=== PATIENT | female | born 1985 | race Caucasian/White ===

== ENCOUNTER 2023-07-07 06:26 | Emergency (ER) | payer OTHER, SELFPAY ==
[2023-07-07 06:29] VITALS: BP 130/84
[2023-07-07 07:06] LABS: COVID-19 Antigen Negative (Negative)
--- NOTE | 2023-07-07 07:16 | ED.GENMED ---
History of Present Illness
General
Chief Complaint: Cold/Flu/URI Symptoms
Time Seen by Provider: 07/07/23 07:09
Travel History
Have you had any contact with someone who has COVID-19?: No
Do you have any symptoms of coronavirus? Fever > 100 degrees, chills, cough, shortness of breath, sore throat, loss of taste or smell, muscle aches, or headache?: Yes
Symptoms:: fever uri sx
History of Present Illness
History of Present Illness:
37-year-old female with no significant past medical history presents to the emergency department for evaluation of fever, nasal congestion, coughing, body aches, headache, and vomiting over the past 2 days. Vomiting has resolved as of this morning.
She is using [id number] Tylenol Cold and flu to control her symptoms. Denies any chest pain or or difficulty breathing. Non-smoker. No history of lung disease.
Review of Systems
Review of Systems
Allergies reviewed?: Yes
All Other Systems: ROS reviewed and negative except as documented in HPI and ROS
Phy Exam
Physical Exam
Physical Exam:
GEN: Well appearing, NAD, WDWN
HEENT: Oral mucosa moist, no scleral icterus tympanic membranes clear bilaterally
Cardiac: Minimally tachycardic, no murmurs
Lung: No respiratory distress, no tachypnea, lungs clear to auscultation bilaterally
MSK: No gross deformity or injuries
Skin: Good color, no pallor or jaundice, no rashes
Neuro: AO x3, moves all extremities freely
Psych: Calm, cooperative
Course
Orders/Labs/Results
Orders:
Orders
07/07/23 06:38
COVID-19 Antigen Urgent
Source: Nasal Swab
Influenza A+B Rapid Molecular Urgent
NANI Source: Nasal Swab
Specimen Description:
Vital Signs
Initial and Last Documented VS:
Initial Vital Signs
Temp Pulse Resp BP Pulse Ox
100.3 F 125 20 130/84 96
07/07/23 06:29 07/07/23 06:29 07/07/23 06:29 07/07/23 06:29 07/07/23 06:29
Last Documented Vital Signs
Temp Pulse Resp BP Pulse Ox
100.3 F 105 16 103/60 97
07/07/23 06:29 07/07/23 07:33 07/07/23 07:33 07/07/23 07:33 07/07/23 07:33
MDM/Problems Addressed
MDM/Problems Addressed:
Patient is clinically well-appearing. Mildly tachycardic which is likely in part due to fever. Discussed appropriate use of antipyretics and supportive care. No indication for antivirals particular given that she is outside the 48-hour treatment
window. Do not feel that labs or imaging will be of any benefit at this juncture given that I do not suspect secondary infection such as pneumonia.
*Critical Care Note
Total Time (30-74mins, 75-104mins- exclusive of procedures): Not Applicable
ED Attending Note
-
Portions of this chart may have been created with voice recognition software.� Occasional wrong word or��sound alike� substitutions may have occurred due to the inherent limitations of voice recognition software.
Discharge Plan
Departure
Patient Disposition: Home (Routine Discharge)
Date of Disposition: 07/07/23
Time of Disposition: 07:18
Patient with high blood pressure during this ER visit?: No
Discharge Problem:
Influenza A
Instructions: Flu, Adult (DC)
Activity Restrictions/Additional Instructions:
Use your Tylenol Cold & Flu product with 600mg ibuprofen (Advil/Motrin) every 6 hours for symptom control
Interventions
Interventions:
*Risk Screen - Suicide Last Done: 07/07/23 06:29
*General Assessment Last Done: 07/07/23 06:29
*Neglect/Abuse Screening Last Done: 07/07/23 06:29
ED- Fall Risk Assessment Last Done: 07/07/23 06:29
*ED COVID-19 Vaccine History Last Done: 07/07/23 06:29
*Nursing Disposition Last Done: 07/07/23 07:39
ED- Pulmonary Assessment Last Done: 07/07/23 07:14
Discharge Date and Time
Discharge Date/Time: 07/07/23 07:39
[2023-07-07 07:33] VITALS: BP 103/60
== END 2023-07-07 07:39 | disposition home or self-care (01) ==
LOC: EMR 06:26
PROVIDERS: EMERGENCY PHYSICIAN Emergency Medicine; FAMILY PHYSICIAN Family Medicine
DX: J10.1 Influenza due to other identified influenza virus with other respiratory manifestations (principal)
CPT/HCPCS: 99283; 87502; 87811